=== PATIENT | female | born 1945 | race Caucasian/White ===

== ENCOUNTER → 2018-04-21 | Outpatient (CLI) | payer OTHER ==
[2018-04-21 10:02] LABS: CREATININE 0.9 mg/dL (0.6-1.0)
== END ==
LOC: CAT 04-20 12:46
PROVIDERS: Family Medicine
DX: K57.30 Diverticulosis of large intestine without perforation or abscess without bleeding (principal); K57.32 Diverticulitis of large intestine without perforation or abscess without bleeding; K44.9 Diaphragmatic hernia without obstruction or gangrene; J98.11 Atelectasis; K76.0 Fatty (change of) liver, not elsewhere classified; Z90.49 Acquired absence of other specified parts of digestive tract; Z90.710 Acquired absence of both cervix and uterus

== ENCOUNTER → 2018-05-16 | Outpatient (CLI) | payer OTHER | LOC: RAD 09:06 | DX: R05 Cough (principal) ==